=== PATIENT | male | born 1930 | race Caucasian/White ===

== ENCOUNTER 2017-08-06 15:06 | Inpatient (IN) ==
[2017-08-06] MEDS ORDERED: SODIUM CHLORIDE 0.9% 1,000 ML IV STA ×2 (15:30→17:02)
[2017-08-06] MEDS ORDERED: ONDANSETRON 4 MG/2 ML VIAL IV STA (15:32)
[2017-08-06 15:56] LABS: Basophils % 0.2 % (0.0-0.8); Hematocrit 39.4 VOL% (42.0-52.0); Hemoglobin 13.3 GM/DL (14.0-18.0); Immature Granulocytes % 0.7 %; Immature Granulocytes Absolute 0.09 #; Lymphocytes # 0.6 10*3/uL (1.4-4.0); Lymphocytes % 4.3 % (21.2-54.2); Mean Corpuscular HGB Conc 33.8 GM/DL (32-36); Mean Corpuscular Hemoglobin 30 PG (27-34); Mean Corpuscular Volume 89.3 FL (87-102); Mean Platelet Volume 9.3 FL (9.6-12.0); Monocytes # 0.4 10*3/uL (0.11-0.8); Monocytes % 2.7 % (1.7-12.7); Neutrophils % 92.1 % (38.7-73.9); Platelet Count 216 T/CUMM (130-400); Red Blood Count 4.41 MC/CUMM (3.8-5.5)
[2017-08-06 16:13] LABS: Lymphocytes 5 % (20-55); Segmented Neutrophils 92 % (50-85); Total Cells Counted 100
[2017-08-06 16:14] LABS: Platelet Estimate Adequate; Poikilocytosis Slight; Tear Drop Cells Slight
[2017-08-06] MEDS ORDERED: LEVOFLOXACIN INJ 750 MG in PREMIX 1 EACH IV STA (16:22)
[2017-08-06 16:32] LABS: Albumin 3.5 G/DL (3.4-5.0); Bilirubin,Total 0.8 MG/DL (0.2-1.0); Osmolality,Calculated 278.4 MOS/KG (273-304); Potassium 4.9 MMOL/L (3.5-5.1); Total Protein 7.3 G/DL (6.4-8.3)
[2017-08-06 16:43] LABS: Lactic Acid 2.4 MMOL/L (0.4-2.0)
[2017-08-06 17:02] LABS: Apearance,Urine Slightly Hazy (Clear); Bacteria,Urine Many /HPF (Few); Bilirubin,Urine Negative (Negative); Blood, Urine Negative (Negative); Glucose,Urine (UA) 50 mg/dL (Negative); Ketones,Urine Negative (Negative); Mucus,Urine Occasional /LPF (Occasional); Nitrite,Urine Positive (Negative); Protein,Urine 100 MG/DL; RBC,Urine 2 /HPF (0-4); Urine Color Yellow (Yellow); Urine Specific Gravity 1.021 (1.001-1.035); WBC,Urine 93 /HPF (0-6)
[2017-08-06] MEDS ORDERED: LEVOFLOXACIN INJ 150 ML IV ONE (17:10)
[2017-08-06] MEDS ORDERED: DEXTROSE 50% 25 GM/50 ML VIAL IV PRN (18:57)
[2017-08-06] MEDS ORDERED: ONDANSETRON 4 MG/2 ML VIAL IV PRN (18:57)
[2017-08-06] MEDS ORDERED: GLUCAGON 1 MG VIAL IM PRN (18:57)
[2017-08-06] MEDS: ACETAMINOPHEN 500 MG TABLET PO PRN (20:29)
[2017-08-06] MEDS ORDERED: ASPIRIN 325 MG TABLET PO ONE (21:39)
[2017-08-06] MEDS: FLECAINIDE 50 MG TABLET PO SCH (21:54)
[2017-08-06] MEDS: SIMVASTATIN 20 MG TABLET PO SCH (21:54)
[2017-08-06] MEDS: INSULIN REGULAR 100 UNIT/ML SUBCUT SCH (22:00)
[2017-08-07] MEDS: ACETAMINOPHEN 500 MG TABLET PO PRN ×2 (04:28→20:05)
[2017-08-07 06:56] LABS: Basophils % 0.1 % (0.0-0.8); Hematocrit 31.7 VOL% (42.0-52.0); Hemoglobin 10.9 GM/DL (14.0-18.0); Immature Granulocytes Absolute 0.11 #; Lymphocytes # 0.3 10*3/uL (1.4-4.0); Lymphocytes % 3.1 % (21.2-54.2); Mean Corpuscular HGB Conc 34.4 GM/DL (32-36); Mean Corpuscular Hemoglobin 30 PG (27-34); Mean Corpuscular Volume 87.1 FL (87-102); Mean Platelet Volume 9.6 FL (9.6-12.0); Monocytes # 0.3 10*3/uL (0.11-0.8); Monocytes % 2.4 % (1.7-12.7); Neutrophils # 10.3 10*3/uL (1.4-7.4); Neutrophils % 93.4 % (38.7-73.9); Platelet Count 165 T/CUMM (130-400); Red Blood Count 3.64 MC/CUMM (3.8-5.5); Red Cell Distribution Width 14.1 % (9.3-17.3); White Blood Count 11.1 T/CUMM (4-12)
[2017-08-07] MEDS ORDERED: BISACODYL 5 MG TABLET PO PRN (06:57)
[2017-08-07 07:17] LABS: Band Neutrophils 5 % (0-10); Giant Platelets Few; Hypochromasia 1+; Lymphocytes 5 % (20-55); Ovalocytes Slight; Platelet Estimate Normal; Segmented Neutrophils 89 % (50-85); Total Cells Counted 100
[2017-08-07 07:33] LABS: Calcium 8.3 MG/DL (8.5-10.1); Osmolality,Calculated 281.8 MOS/KG (273-304)
[2017-08-07] MEDS: LEVOTHYROXINE 25 MCG TABLET PO SCH (08:46)
[2017-08-07] MEDS: METOPROLOL SUCCINATE XL 25 MG TABLET PO SCH (08:48)
[2017-08-07] MEDS: PANTOPRAZOLE 40 MG TABLET PO SCH (08:48)
[2017-08-07] MEDS: FLECAINIDE 50 MG TABLET PO SCH ×4 (08:48→22:28)
[2017-08-07] MEDS: glyBURIDE 2.5 MG TABLET PO SCH ×2 (08:48→16:49)
[2017-08-07] MEDS: PIOGLITAZONE 15 MG TABLET PO SCH (08:48)
[2017-08-07] MEDS: MEROPENEM 1,000 MG in SYRINGE 1 EACH IV SCH ×3 (08:49→23:45)
[2017-08-07] MEDS: ASPIRIN EC 325 MG TABLET PO SCH (08:49)
[2017-08-07] MEDS: INSULIN REGULAR 100 UNIT/ML SUBCUT SCH ×4 (08:49→21:32)
[2017-08-07] MEDS ORDERED: ZINC OXIDE PASTE 113 GM TUBE TOP PRN (11:52)
[2017-08-07] MEDS: LIDOCAINE 5% PATCH TRANSDERM SCH (14:37)
[2017-08-07] MEDS: metFORMIN 500 MG TABLET PO SCH (16:49)
[2017-08-07] MEDS: SIMVASTATIN 20 MG TABLET PO SCH (21:32)
[2017-08-07] MEDS: GABAPENTIN 300 MG CAPSULE PO SCH (21:32)
[2017-08-08] MEDS: MEROPENEM 1,000 MG in SYRINGE 1 EACH IV SCH ×3 (06:06→22:29)
[2017-08-08] MEDS: LEVOTHYROXINE 25 MCG TABLET PO SCH ×2 (08:06→08:45)
[2017-08-08] MEDS: glyBURIDE 2.5 MG TABLET PO SCH ×2 (08:44→16:36)
[2017-08-08] MEDS: PIOGLITAZONE 15 MG TABLET PO SCH (08:45)
[2017-08-08] MEDS: FLECAINIDE 50 MG TABLET PO SCH ×4 (08:45→22:30)
[2017-08-08] MEDS: PANTOPRAZOLE 40 MG TABLET PO SCH (08:45)
[2017-08-08] MEDS: ASPIRIN EC 325 MG TABLET PO SCH (08:45)
[2017-08-08] MEDS: METOPROLOL SUCCINATE XL 25 MG TABLET PO SCH (08:45)
[2017-08-08] MEDS: LIDOCAINE 5% PATCH TRANSDERM SCH (08:47)
[2017-08-08] MEDS: INSULIN REGULAR 100 UNIT/ML SUBCUT SCH ×4 (08:59→22:08)
[2017-08-08] MEDS: metFORMIN 500 MG TABLET PO SCH (16:36)
[2017-08-08] MEDS ORDERED: LEVOFLOXACIN INJ 750 MG in PREMIX 1 EACH IV SCH (18:00)
[2017-08-08] MEDS: SIMVASTATIN 20 MG TABLET PO SCH (21:24)
[2017-08-08] MEDS: GABAPENTIN 300 MG CAPSULE PO SCH (21:24)
[2017-08-09] MEDS: LEVOTHYROXINE 25 MCG TABLET PO SCH (07:19)
[2017-08-09] MEDS: SODIUM CHLORIDE 0.9% 1,000 ML IV SCH (07:27)
[2017-08-09] MEDS: MEROPENEM 1,000 MG in SYRINGE 1 EACH IV SCH (07:27)
[2017-08-09 08:13] LABS: Apearance,Urine CLEAR (Clear); Bilirubin,Urine Negative (Negative); Blood, Urine Moderate mg/dL (Negative); Glucose,Urine (UA) 50 mg/dL (Negative); Ketones,Urine 5 mg/dL (Negative); Mucus,Urine Occasional /LPF (Occasional); Nitrite,Urine Negative (Negative); Protein,Urine 100 MG/DL; RBC,Urine 23 /HPF (0-4); Squamous Epithelial Cell,Urine Occasional /HPF (0-10); Urine Color Yellow (Yellow); Urine Specific Gravity 1.014 (1.001-1.035); WBC,Urine 31 /HPF (0-6)
[2017-08-09 08:29] LABS: Basophils % 0.2 % (0.0-0.8); Hematocrit 37.6 VOL% (42.0-52.0); Hemoglobin 12.7 GM/DL (14.0-18.0); Immature Granulocytes % 0.8 %; Immature Granulocytes Absolute 0.07 #; Lymphocytes # 0.6 10*3/uL (1.4-4.0); Lymphocytes % 6.4 % (21.2-54.2); Mean Corpuscular HGB Conc 33.8 GM/DL (32-36); Mean Corpuscular Hemoglobin 30 PG (27-34); Mean Corpuscular Volume 88.3 FL (87-102); Mean Platelet Volume 9.3 FL (9.6-12.0); Monocytes # 0.4 10*3/uL (0.11-0.8); Monocytes % 4.6 % (1.7-12.7); Neutrophils # 7.6 10*3/uL (1.4-7.4); Platelet Count 170 T/CUMM (130-400); Red Blood Count 4.26 MC/CUMM (3.8-5.5); Red Cell Distribution Width 14.6 % (9.3-17.3); White Blood Count 8.6 T/CUMM (4-12)
[2017-08-09 08:39] LABS: PT Patient Result 10.4 SECS; Partial Thromboplastin Time 28.7 SECS (0-40)
[2017-08-09] MEDS: INSULIN REGULAR 100 UNIT/ML SUBCUT SCH ×4 (08:42→20:16)
[2017-08-09] MEDS: LIDOCAINE 5% PATCH TRANSDERM SCH (08:43)
[2017-08-09] MEDS: ASPIRIN EC 325 MG TABLET PO SCH (08:44)
[2017-08-09] MEDS: glyBURIDE 2.5 MG TABLET PO SCH ×2 (08:44→16:39)
[2017-08-09] MEDS: PIOGLITAZONE 15 MG TABLET PO SCH (08:45)
[2017-08-09] MEDS: APIXABAN 2.5 MG TABLET PO SCH ×2 (08:45→20:14)
[2017-08-09] MEDS: METOPROLOL SUCCINATE XL 25 MG TABLET PO SCH (08:45)
[2017-08-09] MEDS: FLECAINIDE 50 MG TABLET PO SCH ×3 (08:45→20:13)
[2017-08-09] MEDS: PANTOPRAZOLE 40 MG TABLET PO SCH (08:45)
[2017-08-09 08:50] LABS: Albumin 2.5 G/DL (3.4-5.0); Calcium 8.5 MG/DL (8.5-10.1); Osmolality,Calculated 279.1 MOS/KG (273-304); Potassium 4.4 MMOL/L (3.5-5.1); Total Protein 6.1 G/DL (6.4-8.3)
[2017-08-09] MEDS: cefTRIAXone 2,000 MG in SYRINGE 1 EACH IV SCH (12:12)
[2017-08-09] MEDS: FLUCONAZOLE INJ 100 MG in IV BAG 1 EACH IV SCH (14:49)
[2017-08-09] MEDS: NYSTATIN 500,000 UNIT/5 ML UDCUP SWISH/SWAL SCH ×2 (16:19→20:14)
[2017-08-09] MEDS: metFORMIN 500 MG TABLET PO SCH (16:40)
[2017-08-09] MEDS: SIMVASTATIN 20 MG TABLET PO SCH (20:13)
[2017-08-09] MEDS: GABAPENTIN 300 MG CAPSULE PO SCH (20:14)
[2017-08-10] MEDS: SODIUM CHLORIDE 0.9% 1,000 ML IV SCH (00:02)
[2017-08-10] MEDS: ACETAMINOPHEN 500 MG TABLET PO PRN ×3 (03:08→20:16)
[2017-08-10 05:24] LABS: Basophils % 0.2 % (0.0-0.8); Hematocrit 34.5 VOL% (42.0-52.0); Hemoglobin 12.1 GM/DL (14.0-18.0); Immature Granulocytes % 0.7 %; Immature Granulocytes Absolute 0.06 #; Lymphocytes # 0.7 10*3/uL (1.4-4.0); Lymphocytes % 8.6 % (21.2-54.2); Mean Corpuscular HGB Conc 35.1 GM/DL (32-36); Mean Corpuscular Hemoglobin 30 PG (27-34); Mean Corpuscular Volume 84.8 FL (87-102); Mean Platelet Volume 9.9 FL (9.6-12.0); Monocytes # 0.8 10*3/uL (0.11-0.8); Monocytes % 9.8 % (1.7-12.7); Neutrophils # 6.8 10*3/uL (1.4-7.4); Neutrophils % 80.7 % (38.7-73.9); Platelet Count 185 T/CUMM (130-400); Red Blood Count 4.07 MC/CUMM (3.8-5.5); Red Cell Distribution Width 14.7 % (9.3-17.3); White Blood Count 8.4 T/CUMM (4-12)
[2017-08-10 05:58] LABS: Calcium 8.3 MG/DL (8.5-10.1); Magnesium 1.9 MG/DL (1.8-2.4)
[2017-08-10] MEDS: LEVOTHYROXINE 25 MCG TABLET PO SCH (06:38)
[2017-08-10 06:57] LABS: Hypochromasia Slight; Platelet Estimate Normal
[2017-08-10] MEDS: INSULIN REGULAR 100 UNIT/ML SUBCUT SCH ×4 (09:28→22:02)
[2017-08-10] MEDS: ASPIRIN EC 325 MG TABLET PO SCH (10:01)
[2017-08-10] MEDS: PANTOPRAZOLE 40 MG TABLET PO SCH (10:01)
[2017-08-10] MEDS: FLECAINIDE 50 MG TABLET PO SCH ×2 (10:01→20:17)
[2017-08-10] MEDS: APIXABAN 2.5 MG TABLET PO SCH ×2 (10:02→20:17)
[2017-08-10] MEDS: cefTRIAXone 2,000 MG in SYRINGE 1 EACH IV SCH (10:02)
[2017-08-10] MEDS: METOPROLOL SUCCINATE XL 25 MG TABLET PO SCH (10:02)
[2017-08-10] MEDS: LIDOCAINE 5% PATCH TRANSDERM SCH (10:02)
[2017-08-10] MEDS: glyBURIDE 2.5 MG TABLET PO SCH ×2 (10:02→17:44)
[2017-08-10] MEDS: PIOGLITAZONE 15 MG TABLET PO SCH (10:02)
[2017-08-10] MEDS: NYSTATIN 500,000 UNIT/5 ML UDCUP SWISH/SWAL SCH ×4 (10:02→20:17)
[2017-08-10] MEDS: FLUCONAZOLE INJ 100 MG in IV BAG 1 EACH IV SCH (14:37)
[2017-08-10] MEDS: metFORMIN 500 MG TABLET PO SCH (17:44)
[2017-08-10] MEDS: GABAPENTIN 300 MG CAPSULE PO SCH (20:17)
[2017-08-10] MEDS: SIMVASTATIN 20 MG TABLET PO SCH (20:17)
[2017-08-11 05:48] LABS: Basophils % 0.3 % (0.0-0.8); Eosinophils # 0.1 10*3/uL (0.0-0.87); Eosinophils % 1.5 % (0.00-10.9); Hematocrit 34.6 VOL% (42.0-52.0); Immature Granulocytes % 0.9 %; Immature Granulocytes Absolute 0.08 #; Lymphocytes % 11.8 % (21.2-54.2); Mean Corpuscular HGB Conc 34.7 GM/DL (32-36); Mean Corpuscular Hemoglobin 30 PG (27-34); Mean Corpuscular Volume 85.2 FL (87-102); Mean Platelet Volume 9.3 FL (9.6-12.0); Monocytes # 0.7 10*3/uL (0.11-0.8); Monocytes % 7.5 % (1.7-12.7); Neutrophils # 6.8 10*3/uL (1.4-7.4); Platelet Count 196 T/CUMM (130-400); Red Blood Count 4.06 MC/CUMM (3.8-5.5); Red Cell Distribution Width 14.8 % (9.3-17.3); White Blood Count 8.7 T/CUMM (4-12)
[2017-08-11 06:17] LABS: Calcium 8.1 MG/DL (8.5-10.1); Osmolality,Calculated 281.8 MOS/KG (273-304); Potassium 3.6 MMOL/L (3.5-5.1)
[2017-08-11] MEDS: LEVOTHYROXINE 25 MCG TABLET PO SCH (06:37)
[2017-08-11] MEDS: ACETAMINOPHEN 500 MG TABLET PO PRN (06:40)
[2017-08-11] MEDS: NYSTATIN 500,000 UNIT/5 ML UDCUP SWISH/SWAL SCH ×4 (08:58→20:36)
[2017-08-11] MEDS: ASPIRIN EC 325 MG TABLET PO SCH (08:59)
[2017-08-11] MEDS: PIOGLITAZONE 15 MG TABLET PO SCH (08:59)
[2017-08-11] MEDS: APIXABAN 2.5 MG TABLET PO SCH ×2 (08:59→20:36)
[2017-08-11] MEDS: PANTOPRAZOLE 40 MG TABLET PO SCH (08:59)
[2017-08-11] MEDS: FLECAINIDE 50 MG TABLET PO SCH ×2 (09:00→20:36)
[2017-08-11] MEDS: LIDOCAINE 5% PATCH TRANSDERM SCH (09:00)
[2017-08-11] MEDS: glyBURIDE 2.5 MG TABLET PO SCH ×2 (09:00→17:40)
[2017-08-11] MEDS: INSULIN REGULAR 100 UNIT/ML SUBCUT SCH ×4 (09:11→20:51)
[2017-08-11] MEDS: SODIUM CHLORIDE 0.9% 1,000 ML IV SCH (10:19)
[2017-08-11] MEDS: METOPROLOL SUCCINATE XL 25 MG TABLET PO SCH (11:12)
[2017-08-11] MEDS: cefTRIAXone 2,000 MG in SYRINGE 1 EACH IV SCH (11:12)
[2017-08-11] MEDS ORDERED: KETOROLAC 15 MG/1 ML VIAL IM PRN (14:35)
[2017-08-11] MEDS ORDERED: KETOROLAC 15 MG/1 ML VIAL IV PRN (14:46)
[2017-08-11] MEDS: FLUCONAZOLE INJ 100 MG in IV BAG 1 EACH IV SCH (15:18)
[2017-08-11] MEDS: metFORMIN 500 MG TABLET PO SCH (17:40)
[2017-08-11] MEDS: SIMVASTATIN 20 MG TABLET PO SCH (20:36)
[2017-08-11] MEDS: GABAPENTIN 300 MG CAPSULE PO SCH (20:36)
[2017-08-12 06:13] LABS: Basophils % 0.4 % (0.0-0.8); Eosinophils # 0.1 10*3/uL (0.0-0.87); Hematocrit 32.7 VOL% (42.0-52.0); Hemoglobin 11.1 GM/DL (14.0-18.0); Immature Granulocytes Absolute 0.07 #; Lymphocytes # 1.2 10*3/uL (1.4-4.0); Lymphocytes % 17.2 % (21.2-54.2); Mean Corpuscular HGB Conc 33.9 GM/DL (32-36); Mean Corpuscular Hemoglobin 30 PG (27-34); Mean Corpuscular Volume 87.2 FL (87-102); Mean Platelet Volume 9.4 FL (9.6-12.0); Monocytes # 0.7 10*3/uL (0.11-0.8); Monocytes % 9.4 % (1.7-12.7); Platelet Count 199 T/CUMM (130-400); Red Blood Count 3.75 MC/CUMM (3.8-5.5); Red Cell Distribution Width 14.7 % (9.3-17.3); White Blood Count 7.1 T/CUMM (4-12)
[2017-08-12 06:46] LABS: Calcium 7.7 MG/DL (8.5-10.1); Magnesium 1.7 MG/DL (1.8-2.4); Osmolality,Calculated 279.8 MOS/KG (273-304); Potassium 3.9 MMOL/L (3.5-5.1)
[2017-08-12] MEDS: LEVOTHYROXINE 25 MCG TABLET PO SCH (06:53)
[2017-08-12] MEDS ORDERED: MAGNESIUM SULF RIDER 2 GM in PREMIX 1 EACH IV ONE (09:09)
[2017-08-12] MEDS: SODIUM CHLORIDE 0.9% 1,000 ML IV SCH (09:34)
[2017-08-12] MEDS: INSULIN REGULAR 100 UNIT/ML SUBCUT SCH ×4 (09:34→21:13)
[2017-08-12] MEDS: APIXABAN 2.5 MG TABLET PO SCH ×2 (09:39→21:12)
[2017-08-12] MEDS: FLECAINIDE 50 MG TABLET PO SCH ×2 (09:39→21:12)
[2017-08-12] MEDS: PIOGLITAZONE 15 MG TABLET PO SCH (09:39)
[2017-08-12] MEDS: LIDOCAINE 5% PATCH TRANSDERM SCH (09:39)
[2017-08-12] MEDS: METOPROLOL SUCCINATE XL 25 MG TABLET PO SCH (09:39)
[2017-08-12] MEDS: ASPIRIN EC 325 MG TABLET PO SCH (09:39)
[2017-08-12] MEDS: PANTOPRAZOLE 40 MG TABLET PO SCH (09:39)
[2017-08-12] MEDS: glyBURIDE 2.5 MG TABLET PO SCH ×2 (09:39→17:34)
[2017-08-12] MEDS: NYSTATIN 500,000 UNIT/5 ML UDCUP SWISH/SWAL SCH ×4 (09:39→21:14)
[2017-08-12] MEDS: cefTRIAXone 2,000 MG in SYRINGE 1 EACH IV SCH (09:42)
[2017-08-12] MEDS ORDERED: TUBERCULIN SKIN TEST 0.1 ML SYRINGE INTRADERM ONE (10:12)
[2017-08-12] MEDS: metFORMIN 500 MG TABLET PO SCH (17:34)
[2017-08-12] MEDS: SIMVASTATIN 20 MG TABLET PO SCH (21:12)
[2017-08-12] MEDS: GABAPENTIN 300 MG CAPSULE PO SCH (21:12)
[2017-08-13] MEDS: LEVOTHYROXINE 25 MCG TABLET PO SCH (07:27)
[2017-08-13] MEDS: SODIUM CHLORIDE 0.9% 1,000 ML IV SCH (07:31)
[2017-08-13] MEDS: METOPROLOL SUCCINATE XL 25 MG TABLET PO SCH (08:13)
[2017-08-13] MEDS: FLECAINIDE 50 MG TABLET PO SCH (08:13)
[2017-08-13] MEDS: glyBURIDE 2.5 MG TABLET PO SCH (08:14)
[2017-08-13] MEDS: PIOGLITAZONE 15 MG TABLET PO SCH (08:14)
[2017-08-13] MEDS: APIXABAN 2.5 MG TABLET PO SCH (08:14)
[2017-08-13] MEDS: ASPIRIN EC 325 MG TABLET PO SCH (08:14)
[2017-08-13] MEDS: PANTOPRAZOLE 40 MG TABLET PO SCH (08:14)
[2017-08-13] MEDS: NYSTATIN 500,000 UNIT/5 ML UDCUP SWISH/SWAL SCH (08:15)
[2017-08-13] MEDS: INSULIN REGULAR 100 UNIT/ML SUBCUT SCH (08:56)
[2017-08-13] MEDS: LIDOCAINE 5% PATCH TRANSDERM SCH (08:57)
[2017-08-13 09:40] VITALS: BP 157/83
[2017-08-13] MEDS: cefTRIAXone 2,000 MG in SYRINGE 1 EACH IV SCH (10:16)
== END 2017-08-13 13:49 | DRG 871 ==
LOC: N.ED 15:06 → N.EDINP 17:10 → N.5E 18:57
PROVIDERS: ADMIT Family Medicine; ATTEND Family Medicine

== ENCOUNTER 2019-10-25 09:41 | Observation (INO) ==
[2019-10-25] MEDS ORDERED: GLUCAGON 1 MG VIAL IM PRN (12:24)
[2019-10-25] MEDS ORDERED: DEXTROSE 10% 250 ML BAG IV PRN (12:24)
[2019-10-25] MEDS ORDERED: ACETAMINOPHEN 325 MG TABLET PO PRN (12:24)
[2019-10-25] MEDS ORDERED: ONDANSETRON 4 MG/2 ML VIAL IV PRN (12:24)
[2019-10-25 12:40] LABS: Basophils % 0.3 % (0.0-0.8); Hematocrit 39.8 VOL% (42.0-52.0); Hemoglobin 13.5 GM/DL (14.0-18.0); Immature Granulocytes % 0.6 %; Immature Granulocytes Absolute 0.04 #; Lymphocytes # 1.2 10*3/uL (1.4-4.0); Lymphocytes % 18.7 % (21.2-54.2); Mean Corpuscular HGB Conc 33.9 GM/DL (32-36); Mean Corpuscular Volume 89.8 FL (87-102); Mean Platelet Volume 9.7 FL (9.6-12.0); Monocytes % 6.8 % (1.7-12.7); Neutrophils % 73.6 % (38.7-73.9); Platelet Count 168 T/CUMM (130-400); Red Blood Count 4.43 MC/CUMM (3.8-5.5); Red Cell Distribution Width 13.6 % (9.3-17.3); White Blood Count 6.6 T/CUMM (4-12)
[2019-10-25 12:50] LABS: Albumin 3.7 G/DL (3.4-5.0); Bilirubin,Total 0.8 MG/DL (0.2-1.0); Calcium 9.3 MG/DL (8.5-10.1); Ferritin 106.5 ng/ml (26-388); Osmolality,Calculated 271.5 MOS/KG (273-304); Total Protein 7.5 G/DL (6.4-8.3)
[2019-10-25] MEDS: SODIUM CHLORIDE 0.45% 1,000 ML IV SCH (13:50)
[2019-10-25] MEDS: metFORMIN 500 MG TABLET PO SCH (16:59)
[2019-10-25] MEDS: glyBURIDE 5 MG TABLET PO SCH (16:59)
[2019-10-25] MEDS: INSULIN LISPRO 100 UNIT/ML SUBCUT SCH ×2 (17:36→21:51)
[2019-10-25] MEDS: SIMVASTATIN 20 MG TABLET PO SCH (21:46)
[2019-10-25] MEDS: GABAPENTIN 300 MG CAPSULE PO SCH (21:46)
[2019-10-25] MEDS: FLECAINIDE 50 MG TABLET PO SCH (21:46)
[2019-10-25] MEDS: DOCUSATE SODIUM 100 MG CAPSULE PO SCH (21:47)
[2019-10-25] MEDS: METOPROLOL SUCCINATE XL 50 MG TABLET PO SCH (21:47)
[2019-10-25] MEDS: PIOGLITAZONE 15 MG TABLET PO SCH (21:51)
[2019-10-25] MEDS: MULTIVITAMIN (OCUVITE) TABLET PO SCH (21:52)
[2019-10-25] MEDS: OMEGA 3 ACID ETHYL ESTERS 1 GM CAPSULE PO SCH (21:52)
[2019-10-25] MEDS: APIXABAN 2.5 MG TABLET PO SCH (21:55)
[2019-10-26] MEDS: SODIUM CHLORIDE 0.45% 1,000 ML IV SCH ×2 (03:31→16:16)
[2019-10-26 05:41] LABS: Basophils % 0.3 % (0.0-0.8); Hematocrit 36.1 VOL% (42.0-52.0); Hemoglobin 12.6 GM/DL (14.0-18.0); Immature Granulocytes % 0.5 %; Immature Granulocytes Absolute 0.03 #; Lymphocytes # 1.1 10*3/uL (1.4-4.0); Lymphocytes % 18.4 % (21.2-54.2); Mean Corpuscular HGB Conc 34.9 GM/DL (32-36); Mean Corpuscular Volume 87.4 FL (87-102); Mean Platelet Volume 9.6 FL (9.6-12.0); Monocytes % 8.6 % (1.7-12.7); Neutrophils % 72.2 % (38.7-73.9); Platelet Count 139 T/CUMM (130-400); Red Blood Count 4.13 MC/CUMM (3.8-5.5); Red Cell Distribution Width 13.7 % (9.3-17.3); White Blood Count 5.9 T/CUMM (4-12)
[2019-10-26 05:54] LABS: Osmolality,Calculated 267.7 MOS/KG (273-304)
[2019-10-26] MEDS: INSULIN LISPRO 100 UNIT/ML SUBCUT SCH ×4 (09:11→20:33)
[2019-10-26] MEDS: ASPIRIN EC 325 MG TABLET PO SCH (10:02)
[2019-10-26] MEDS: APIXABAN 2.5 MG TABLET PO SCH ×2 (10:03→20:32)
[2019-10-26] MEDS: OMEGA 3 ACID ETHYL ESTERS 1 GM CAPSULE PO SCH ×2 (10:03→20:32)
[2019-10-26] MEDS: metFORMIN 500 MG TABLET PO SCH ×2 (10:04→16:16)
[2019-10-26] MEDS: FLECAINIDE 50 MG TABLET PO SCH ×2 (10:04→20:32)
[2019-10-26] MEDS: DOCUSATE SODIUM 100 MG CAPSULE PO SCH ×2 (10:04→20:32)
[2019-10-26] MEDS: LEVOTHYROXINE 50 MCG TABLET PO SCH (10:04)
[2019-10-26] MEDS: glyBURIDE 2.5 MG TABLET PO SCH (10:04)
[2019-10-26] MEDS: MULTIVITAMIN (OCUVITE) TABLET PO SCH ×2 (10:04→20:33)
[2019-10-26] MEDS: PANTOPRAZOLE 40 MG TABLET PO SCH ×2 (10:05→12:21)
[2019-10-26] MEDS: glyBURIDE 5 MG TABLET PO SCH (16:16)
[2019-10-26] MEDS: METOPROLOL SUCCINATE XL 50 MG TABLET PO SCH (20:32)
[2019-10-26] MEDS: GABAPENTIN 300 MG CAPSULE PO SCH (20:32)
[2019-10-26] MEDS: PIOGLITAZONE 15 MG TABLET PO SCH (20:32)
[2019-10-26] MEDS: SIMVASTATIN 20 MG TABLET PO SCH (20:33)
[2019-10-27] MEDS: SODIUM CHLORIDE 0.45% 1,000 ML IV SCH (05:11)
[2019-10-27] MEDS: LEVOTHYROXINE 50 MCG TABLET PO SCH (06:30)
[2019-10-27] MEDS: INSULIN LISPRO 100 UNIT/ML SUBCUT SCH ×4 (08:54→20:31)
[2019-10-27] MEDS: MULTIVITAMIN (OCUVITE) TABLET PO SCH ×2 (08:56→20:30)
[2019-10-27] MEDS: ASPIRIN EC 325 MG TABLET PO SCH (08:56)
[2019-10-27] MEDS: OMEGA 3 ACID ETHYL ESTERS 1 GM CAPSULE PO SCH ×2 (08:56→20:30)
[2019-10-27] MEDS: DOCUSATE SODIUM 100 MG CAPSULE PO SCH ×2 (08:56→20:30)
[2019-10-27] MEDS: metFORMIN 500 MG TABLET PO SCH ×2 (08:56→16:42)
[2019-10-27] MEDS: FLECAINIDE 50 MG TABLET PO SCH ×2 (08:56→20:30)
[2019-10-27] MEDS: glyBURIDE 2.5 MG TABLET PO SCH (08:56)
[2019-10-27] MEDS: APIXABAN 2.5 MG TABLET PO SCH ×2 (08:57→20:30)
[2019-10-27] MEDS: PANTOPRAZOLE 40 MG TABLET PO SCH ×2 (08:57→11:02)
[2019-10-27] MEDS: glyBURIDE 5 MG TABLET PO SCH (16:42)
[2019-10-27] MEDS: PIOGLITAZONE 15 MG TABLET PO SCH (20:30)
[2019-10-27] MEDS: SIMVASTATIN 20 MG TABLET PO SCH (20:30)
[2019-10-27] MEDS: METOPROLOL SUCCINATE XL 50 MG TABLET PO SCH (20:30)
[2019-10-27] MEDS: GABAPENTIN 300 MG CAPSULE PO SCH (20:30)
[2019-10-28] MEDS: SODIUM CHLORIDE 0.45% 1,000 ML IV SCH (01:52)
[2019-10-28] MEDS: LEVOTHYROXINE 50 MCG TABLET PO SCH (06:33)
[2019-10-28] MEDS: FLECAINIDE 50 MG TABLET PO SCH (08:33)
[2019-10-28] MEDS: glyBURIDE 2.5 MG TABLET PO SCH (08:33)
[2019-10-28] MEDS: MULTIVITAMIN (OCUVITE) TABLET PO SCH (08:33)
[2019-10-28] MEDS: OMEGA 3 ACID ETHYL ESTERS 1 GM CAPSULE PO SCH (08:33)
[2019-10-28] MEDS: APIXABAN 2.5 MG TABLET PO SCH (08:34)
[2019-10-28] MEDS: DOCUSATE SODIUM 100 MG CAPSULE PO SCH (08:34)
[2019-10-28] MEDS: ASPIRIN EC 325 MG TABLET PO SCH (08:34)
[2019-10-28] MEDS: metFORMIN 500 MG TABLET PO SCH (08:34)
[2019-10-28] MEDS: PANTOPRAZOLE 40 MG TABLET PO SCH ×2 (08:36→12:27)
[2019-10-28] MEDS: INSULIN LISPRO 100 UNIT/ML SUBCUT SCH ×2 (08:39→12:23)
[2019-10-28 12:28] VITALS: BP 161/76
== END 2019-10-28 13:26 ==
LOC: EDBD → EDUNIT# → N.ED 09:41 → INTOOBSV 12:24 → N.EDINP 12:24 → N.TELES 13:41
PROVIDERS: ADMIT Family Medicine; ATTEND Family Medicine

== ENCOUNTER 2020-02-01 14:25 | Inpatient (IN) ==
[2020-02-01] MEDS ORDERED: ONDANSETRON 4 MG/2 ML VIAL IV STA (15:26)
[2020-02-01] MEDS ORDERED: MORPHINE 4 MG/1 ML VIAL IV STA (15:26)
[2020-02-01] MEDS ORDERED: DEXTROSE 50% 25 GM/50 ML VIAL IV PRN (16:36)
[2020-02-01] MEDS ORDERED: MORPHINE 4 MG/1 ML VIAL IV PRN (16:36)
[2020-02-01] MEDS ORDERED: ONDANSETRON 4 MG/2 ML VIAL IV PRN (16:36)
[2020-02-01] MEDS ORDERED: GLUCAGON 1 MG VIAL IM PRN (16:36)
[2020-02-01] MEDS ORDERED: ACETAMINOPHEN 325 MG TABLET PO PRN (16:36)
[2020-02-01] MEDS: OMEGA 3 ACID ETHYL ESTERS 1 GM CAPSULE PO SCH (21:36)
[2020-02-01] MEDS: DOCUSATE SODIUM 100 MG CAPSULE PO SCH (21:36)
[2020-02-01] MEDS: GABAPENTIN 300 MG CAPSULE PO SCH (21:36)
[2020-02-01] MEDS: PIOGLITAZONE 15 MG TABLET PO SCH (21:36)
[2020-02-01] MEDS: METOPROLOL SUCCINATE XL 50 MG TABLET PO SCH (21:38)
[2020-02-01] MEDS: INSULIN LISPRO 100 UNIT/ML SUBCUT SCH (21:39)
[2020-02-01] MEDS: FLECAINIDE 50 MG TABLET PO SCH (21:39)
[2020-02-02] MEDS: LEVOTHYROXINE 50 MCG TABLET PO SCH (05:36)
[2020-02-02 06:12] LABS: Basophils % 0.4 % (0.0-0.8); Eosinophils # 0.2 10*3/uL (0.0-0.87); Eosinophils % 2.9 % (0.00-10.9); Hematocrit 31.1 VOL% (42.0-52.0); Hemoglobin 10.2 GM/DL (14.0-18.0); Immature Granulocytes % 0.5 %; Immature Granulocytes Absolute 0.04 #; Lymphocytes # 1.7 10*3/uL (1.4-4.0); Lymphocytes % 21.5 % (21.2-54.2); Mean Corpuscular HGB Conc 32.8 GM/DL (32-36); Mean Corpuscular Volume 93.1 FL (87-102); Mean Platelet Volume 9.6 FL (9.6-12.0); Monocytes % 9.7 % (1.7-12.7); Platelet Count 184 T/CUMM (130-400); Red Blood Count 3.34 MC/CUMM (3.8-5.5); Red Cell Distribution Width 13.8 % (9.3-17.3); White Blood Count 8.1 T/CUMM (4-12)
[2020-02-02 07:29] LABS: Albumin 3.1 G/DL (3.4-5.0); Bilirubin,Total 0.8 MG/DL (0.2-1.0); Calcium 8.7 MG/DL (8.5-10.1); Osmolality,Calculated 287.8 MOS/KG (273-304); Total Protein 6.3 G/DL (6.4-8.3)
[2020-02-02] MEDS ORDERED: SIMVASTATIN 20 MG TABLET PO SCH (09:00)
[2020-02-02] MEDS: INSULIN LISPRO 100 UNIT/ML SUBCUT SCH ×4 (10:53→21:06)
[2020-02-02] MEDS: FLECAINIDE 50 MG TABLET PO SCH ×2 (10:55→21:06)
[2020-02-02] MEDS: PIOGLITAZONE 15 MG TABLET PO SCH ×2 (10:55→21:06)
[2020-02-02] MEDS: OMEGA 3 ACID ETHYL ESTERS 1 GM CAPSULE PO SCH ×2 (10:57→21:06)
[2020-02-02] MEDS: DOCUSATE SODIUM 100 MG CAPSULE PO SCH ×2 (10:57→21:06)
[2020-02-02] MEDS: APIXABAN 2.5 MG TABLET PO SCH ×2 (10:58→21:06)
[2020-02-02] MEDS: PANTOPRAZOLE 40 MG TABLET PO SCH (10:58)
[2020-02-02] MEDS: glyBURIDE 2.5 MG TABLET PO SCH (10:59)
[2020-02-02 15:04] LABS: Apearance,Urine CLEAR (Clear); Bacteria,Urine Occasional /HPF (Few); Bilirubin,Urine Negative (Negative); Blood, Urine Negative (Negative); Glucose,Urine (UA) 50 mg/dL (Negative); Ketones,Urine Negative (Negative); Mucus,Urine Occasional /LPF (Occasional); Nitrite,Urine Negative (Negative); Protein,Urine 30 MG/DL; RBC,Urine 2 /HPF (0-4); Urine Color Yellow (Yellow); Urine Specific Gravity 1.019 (1.001-1.035); Urine Urobilinogen < 2.0 EU/DL (0.2-1.0); WBC,Urine 1 /HPF (0-6)
[2020-02-02] MEDS: SODIUM CHLORIDE 0.9% 1,000 ML IV SCH (18:07)
[2020-02-02] MEDS: GABAPENTIN 300 MG CAPSULE PO SCH (21:06)
[2020-02-02] MEDS: METOPROLOL SUCCINATE XL 50 MG TABLET PO SCH (21:07)
[2020-02-03] MEDS: LEVOTHYROXINE 50 MCG TABLET PO SCH (05:49)
[2020-02-03] MEDS: SODIUM CHLORIDE 0.9% 1,000 ML IV SCH ×3 (06:49→16:40)
[2020-02-03] MEDS: OMEGA 3 ACID ETHYL ESTERS 1 GM CAPSULE PO SCH ×2 (08:23→21:18)
[2020-02-03] MEDS: PIOGLITAZONE 15 MG TABLET PO SCH (08:24)
[2020-02-03] MEDS: glyBURIDE 2.5 MG TABLET PO SCH (08:24)
[2020-02-03] MEDS: APIXABAN 2.5 MG TABLET PO SCH ×2 (08:24→21:18)
[2020-02-03] MEDS: DOCUSATE SODIUM 100 MG CAPSULE PO SCH ×2 (08:24→21:18)
[2020-02-03] MEDS: PANTOPRAZOLE 40 MG TABLET PO SCH (08:24)
[2020-02-03] MEDS: FLECAINIDE 50 MG TABLET PO SCH ×2 (08:24→21:17)
[2020-02-03] MEDS: INSULIN LISPRO 100 UNIT/ML SUBCUT SCH ×4 (08:25→21:22)
[2020-02-03] MEDS: SIMVASTATIN 20 MG TABLET PO SCH (21:18)
[2020-02-03] MEDS: GABAPENTIN 300 MG CAPSULE PO SCH (21:18)
[2020-02-03] MEDS: METOPROLOL SUCCINATE XL 50 MG TABLET PO SCH (21:18)
[2020-02-04] MEDS: LEVOTHYROXINE 50 MCG TABLET PO SCH ×2 (06:52→09:59)
[2020-02-04] MEDS: APIXABAN 2.5 MG TABLET PO SCH ×2 (09:59→21:55)
[2020-02-04] MEDS: FLECAINIDE 50 MG TABLET PO SCH ×2 (09:59→21:54)
[2020-02-04] MEDS: glyBURIDE 2.5 MG TABLET PO SCH (09:59)
[2020-02-04] MEDS: DOCUSATE SODIUM 100 MG CAPSULE PO SCH ×2 (09:59→21:54)
[2020-02-04] MEDS: PIOGLITAZONE 15 MG TABLET PO SCH (10:00)
[2020-02-04] MEDS: OMEGA 3 ACID ETHYL ESTERS 1 GM CAPSULE PO SCH ×2 (10:00→21:55)
[2020-02-04] MEDS: PANTOPRAZOLE 40 MG TABLET PO SCH (10:00)
[2020-02-04] MEDS: SODIUM CHLORIDE 0.9% 1,000 ML IV SCH ×2 (10:00→18:31)
[2020-02-04] MEDS: INSULIN LISPRO 100 UNIT/ML SUBCUT SCH ×4 (10:02→21:54)
[2020-02-04] MEDS: GABAPENTIN 300 MG CAPSULE PO SCH (21:54)
[2020-02-04] MEDS: SIMVASTATIN 20 MG TABLET PO SCH (21:55)
[2020-02-04] MEDS: METOPROLOL SUCCINATE XL 50 MG TABLET PO SCH (21:55)
[2020-02-05] MEDS: SODIUM CHLORIDE 0.9% 1,000 ML IV SCH (03:15)
[2020-02-05] MEDS: LEVOTHYROXINE 50 MCG TABLET PO SCH (06:10)
[2020-02-05 07:32] VITALS: BP 138/89
[2020-02-05] MEDS: INSULIN LISPRO 100 UNIT/ML SUBCUT SCH (08:30)
[2020-02-05] MEDS: glyBURIDE 2.5 MG TABLET PO SCH (09:00)
[2020-02-05] MEDS: FLECAINIDE 50 MG TABLET PO SCH (09:03)
[2020-02-05] MEDS: OMEGA 3 ACID ETHYL ESTERS 1 GM CAPSULE PO SCH (09:03)
[2020-02-05] MEDS: DOCUSATE SODIUM 100 MG CAPSULE PO SCH (09:03)
[2020-02-05] MEDS: APIXABAN 2.5 MG TABLET PO SCH (09:03)
[2020-02-05] MEDS: PIOGLITAZONE 15 MG TABLET PO SCH (09:03)
[2020-02-05] MEDS: PANTOPRAZOLE 40 MG TABLET PO SCH (09:04)
== END 2020-02-05 11:05 | disposition swing bed (61) | DRG 563 ==
LOC: EDBD → EDUNIT# → N.ED 14:25 → N.EDINP 14:25 → N.3E 18:28
PROVIDERS: ADMIT Family Medicine; ATTEND Family Medicine